=== PATIENT | male | born 1990 ===

== ENCOUNTER 2018-01-03 11:00 | Outpatient (CLI) | payer OTHER ==
--- NOTE | 2018-01-03 12:13 | Diagnostic Imaging Report ---
Indication: Pain Technique: 3 views right hand Comparison: none Findings: No acute fractures. No dislocations. Joint spaces are preserved Impression: Negative
--- NOTE | 2018-01-03 12:15 | Diagnostic Imaging Report ---
Indication: Foot pain Technique: 3 views ] foot Comparison: none Findings: No acute fractures. No dislocations. The joint spaces are preserved. Impression: Negative
== END 2018-01-03 13:00 | disposition home or self-care (01) ==
LOC: RAD 11:00
DX: S99.921A Unspecified injury of right foot, initial encounter (principal); S69.91XA Unspecified injury of right wrist, hand and finger(s), initial encounter; X58.XXXA Exposure to other specified factors, initial encounter; Y93.9 Activity, unspecified; Y92.9 Unspecified place or not applicable